=== PATIENT | male | born 1945 | race Caucasian/White ===

== ENCOUNTER 2016-05-20 00:37 | Emergency (ER) | payer MEDICARE ==
[2016-05-20 00:46] VITALS: BP 104/58; PULSE 87; RESP 16; O2SAT 100
--- NOTE | 2016-05-20 00:49 | ED.REPORT ---
HPI-Syncope Date of Service May 20, 2016 ED Provider: History of Present Illness: Mr. 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 Immediatly following his syncopal episode with fall to the floor Mr. Albright began to vomit and have diarrhea. Mr. Albright had a cough yesterday with no other signs and syptoms. He is generally healthy and does not take home medications. His primary care physician is Dr. Oneil. Nursing Notes Stated Complaint: SYNCOPAL EPISODE Chief Complaint: General Complaint Nursing Notes Reviewed: Yes Allergies: Coded Allergies: No Known Allergies (Unverified , 05/20/16) Scheduled Azithromycin (Zithromax (Z-Chance)) 250 Mg Tablet 250 MG PO DIRECTED Take two tablets by mouth on day 1, then take one tablet daily on days 2 through 5. Oseltamivir Phosphate (Tamiflu) 75 Mg Capsule 75 MG PO BID Scheduled PRN Ondansetron ODT (Zofran ODT) 4 Mg Tablet 4 MG PO Q4H PRN PRN For Nausea General Time Seen by Provider: 00:49 Chief Complaint Collapsed suddenly, Other Review of Systems Review of Systems Note: A comprehensive review of systems was conducted with the patient and found to be negative except as above in the History of Present Illness. A complete ROS is limited by the patients non verbal status. Physical Exam Physical Exam Notes: General: No acute distress and seems quite jolly, well-developed, well-nourished, Limited by the patients non verbal status. HEENT: Normocephalic, atraumatic. External ears without defect. Pupils equal, round, and reactive to light and accommodation. Anicteric sclerae, moist conjunctivae, and no lid lag. Oropharynx free of erythema and cobble stoning with moist mucosa. Neck: Supple with full range of motion. No jugular venous distension. No bruits. No lymphadenopathy or thyromegaly. Cardiovascular: Regular rate and rhythm with no murmurs, rubs, or gallops appreciated Pulmonary: Clear to auscultation bilaterally with no crackles, wheezes, or rhonchi. Normal respiratory effort with no use of accessory muscles. Abdomen: Bowel tones present. Soft, nontender, nondistended. No hepatosplenomegaly or masses appreciated. Extremities: No clubbing, cyanosis, edema, or lymphadenopathy appreciated. Skin: Normal temperature, turgor, and texture; no rash, ulcers, or subcutaneous nodules appreciated. Neurological: Limited by the patients non verbal status. Psychiatric: Limited by the patients non verbal status. Initial Vital Signs Vital Signs (First) Date Time Temp Pulse Resp B/P Pulse Ox O2 Delivery O2 Flow Rate FiO2 05/20/16 00:46 38. 87 16 104/58 100 Room Air Interpretation & Diagnostics Lab Results Interpretation Result Diagram: 05/20/16 0151 05/20/16 015 Test 05/20/16 01:51 White Blood Count 9.8th/mm3 (3.8-10.1) Red Blood Count 5.14mil/mm3 (4.40-5.80) Hemoglobin 15.5g/dL (13.8-17.2) Hematocrit 44.6% (41.0-50.0) Mean Corpuscular Volume 86.8fL (81-100) Mean Corpuscular Hemoglobin 30.2pg (27.0-35.0) Mean Corpuscular Hemoglobin Concent 34.8% (32.0-37.0) Red Cell Distribution Width 13.3% (12.3-15.4) Platelet Count 211bil/L (150-400) Neutrophils (%) (Auto) 81.0% (40-74) Lymphocytes (%) (Auto) 7.4% (14-46) Monocytes (%) (Auto) 11.2% (4-12) Eosinophils (%) (Auto) 0.1% (0-5) Basophils (%) (Auto) 0.2% (0-3) Hold Blue Top Tube Received (Received) Sodium Level 137mEq/L (134-144) Potassium Level 4.0mEq/L (3.5-5.2) Chloride Level 99mEq/L (97-108) Carbon Dioxide Level 25mmol/L (18-29) Blood Urea Nitrogen 16mg/dL (8-27) Creatinine 1.05mg/dL (0.76-1.27) Estimat Glomerular Filtration Rate 74mL/min (>59) Glucose Level 128mg/dL (60-99) Calcium Level 8.9mg/dL (8.5-10.1) Total Bilirubin 0.6mg/dL (0.0-1.2) Aspartate Amino Transf (AST/SGOT) 33U/L (0-50) Alanine Aminotransferase (ALT/SGPT) 27U/L (0-44) Alkaline Phosphatase 80U/L (25-160) Troponin T 0.010ug/L (0.0-0.011) Total Protein 7.5g/dL (6.4-8.4) Albumin 4.2g/dL (3.4-5.0) Hold Red Top Tube Received (Received) Hold Valle Top Tube Received (Received) Re-Eval/Medical Decision Med Decision/Clinical Course 1. Ground level fall with vomiting and diarrhea. - 1L NS IV fluids - Rapid influenza positive. - CT Brain w/out contrast was negative for acute bleeds. - CBC, CMP, Tropes with repeat all negative. - CXR normal. - EKG normal. - Tamiflu started, Z-pack for home. - Tylenol for fevers. - Discharge & Departure Shift Change Sign-Out Patient Care Transferred: Yes Discussed Complaint(s): Yes Laboratory Evaluation: Lab evaluation discussed Imaging Studies: Imaging discussed Response to Therapy: Unchanged Impression: Primary Impression: Fall from ground level Additional Impression: Influenza A Disposition: Home Discharge Condition All VS Reviewed: Yes Condition: Stable (ERASED) Additional Instructions: During your visit to [facility] for a witnessed ground level fall with subsequent vomiting and diarrhea, we did blood work, EKG, and Brain imaging and chest X-ray. Your lab values were perfectly normal. Your EKG was normal. The high resolution 3D image of your brain showed NO acute bleeding. We will send you home with - 5 day course of Tamiflu for you and your . - Z-pack (azithromycin) antibiotic to treat for possible pneumonia, which is common after influenza. - Zofran ODT take home for nausea and vomiting at home. - Take Tylenol for high fevers at home. If you experience worsening symptoms, more episodes of falls at home, uncontrolled vomiting or diarrhea, severe shortness of breath, don't hesitate to call your primary care physician or your emergency services. Attending Statement I took a history and performed a physical examination. Mr. Albright may or may not of a syncopal episode. He has been coughing. His has been coughing. Today he fell at home and hit the back of his head. After that he had vomiting and diarrhea. He never seemed to lose consciousness. He presented him or sperm awake and alert. He does have a fever. Beyond that his exam was very benign. He has chronic almost dementia-like affect secondary to prior traumatic brain injury. He is otherwise very pleasant. His exam was benign. His lungs were essentially clear. EKG did not show signs of ischemia. He team should brain showed chronic changes with nothing acute. Troponin 2 were negative. He is febrile with influenza A and diarrhea. Pulmonary emboli is highly unlikely. He is not short of breath. He is not tachycardic. He did not have a syncopal episode rather he fell. A far more likely diagnosis is the fact that he has influenza a positive and he has a fever. He is received IV fluids, Zofran and Tamiflu. His vitals are now normal. His states that he is at his baseline and she feels ready to take him home. His is coming down with something to sort of put her on Tamiflu. Recommended close outpatient follow-up. copies to: Krzysztof Oneil DO Rede Duncan DO May 20, 2016 00:49 LYNDON MENON DO May 20, 2016 03:04
[2016-05-20 02:01] LABS: BASOPHILS % (AUTO) 0.2 % (0-3); EOSINOPHILS % (AUTO) 0.1 % (0-5); MONOCYTES % (AUTO) 11.2 % (4-12); Mean Corpuscular Hemoglobin 30.2 pg (27.0-35.0); Mean Corpuscular Volume 86.8 fL (81-100); Platelet Count 211 bil/L (150-400)
[2016-05-20] MEDS ORDERED: AZIT250T4 PO (03:19)
[2016-05-20] MEDS ORDERED: TAM75UDCAP PO (03:19)
[2016-05-20] MEDS ORDERED: ONDA4TAB9 PO (03:29)
[2016-05-20] MEDS ORDERED: 0.9% Sodium Chloride 1,000 ML IV ONE (03:30)
[2016-05-20] MEDS ORDERED: _Ondansetron ODT 4 mg Tablet PO PRN (03:35)
[2016-05-20 04:49] VITALS: BP 123/70; PULSE 91; RESP 20; O2SAT 97
--- NOTE | 2016-05-20 08:36 | DRSVH ---
PROCEDURE: CT BRAIN WITHOUT CONTRAST ([id number]) INDICATIONS: syncope and vomiting TECHNIQUE: Noncontrast 4.5 mm thick angled axial sections acquired from the foramen magnum to the vertex, with c oronal reformats. COMPARISON: None. FINDINGS: Image quality: Excellent. CSF spaces: Basal cisterns are patent. No extra-axial fluid collections. The ventricles are symmet miguel in size and shape. Brain: No intracranial bleeds or masses. Encephalomalacia is present within the left temporal lobe with resultant ex vacuo dilatation of the left lateral ventricle. There is moderate cerebral volume l oss for age, with resultant ventricular and sulcal prominence. There are periventricular and deep whi te matter chronic small vessel ischemic changes. There is intracranial internal carotid artery ather osclerosis. Skull and face: Calvarium and visualized facial bones appear intact, without suspicious lesions. Sinuses: Visualized sinuses and mastoids are clear. IMPRESSION: 1. No acute intracranial findings. 2. 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 Note: [facility] and the final report are concordant. Dictated by: Lilliana Rapp M.D. on 05/20/2016 at 8:35 Approved by: Lilliana Rapp M.D. on 05/20/2016 at 8:35
--- NOTE | 2016-05-20 08:41 | DRSVH ---
PROCEDURE: X-RAY CHEST ONE VIEW, PORTABLE ([id number]) INDICATIONS: Syncope TECHNIQUE: One view of the chest was acquired. COMPARISON: None. FINDINGS: Surgical changes and devices: None. Lungs and pleura: No pleural effusions or pneumothorax. There are few patchy medial bibasilar opaci ties. Mediastinum: Mediastinal contours appear within normal limits. Heart size is normal. Bones and chest wall: No suspicious bony lesions. Overlying soft tissues appear unremarkable. IMPRESSION: 1. Patchy medial bibasilar opacities may represent atelectasis, aspiration, or developing consolidat ion. Dictated by: Dean Arauz M.D. on 05/20/2016 at 8:39 Approved by: Dean Arauz M.D. on 05/20/2016 at 8:39
== END 2016-05-20 04:47 | disposition home or self-care (01) ==
LOC: SED 00:37 → EDBD 00:37 → SED 04:47
DX: J10.1 Influenza due to other identified influenza virus with other respiratory manifestations (principal); W18.30XA Fall on same level, unspecified, initial encounter; Y93.01 Activity, walking, marching and hiking; Y92.9 Unspecified place or not applicable; Y99.8 Other external cause status; Z87.820 Personal history of traumatic brain injury
CPT/HCPCS: 36415; 70450; 71010; 80053; 84484; 85025; 87804; 93005; 96360; 99285; J7030